=== PATIENT | male | born 1965 | race Caucasian/White ===

== ENCOUNTER 2017-05-19 13:06 | Emergency (ER) | payer SELFPAY ==
[2017-05-19 13:14] VITALS: BMI 28.3
--- NOTE | 2017-05-19 13:23 | PDOC ---
History of Present Illness - General History Source: Patient Exam Limitations: No Limitations - History of Present Illness Initial Comments: 05/19/17 14:52 Patient is a 52 year old male with a significant past medical history of Who presents to the ED with complaints of headache that began 6 days ago. Patient reports headache began last saturday with no relief. Patient reports generalized body ache secondary to frontal headache. He states experiencing fever secondary to frontal headache. Patient reports headache and fever developed together. Patient states he took tylenol x1 this morning at 11am for the frontal headache. Denies rashes, trauma. Denies nausea, vomiting. Denies contact with sick individuals, out of state travel. Denies any other symptoms. Allergies: None Social history: No smoking. No alcohol. No illicit drugs, Surgical history PMD: None <Jan Redd - Last Filed: 05/19/17 14:59> <Estela Rubio - Last Filed: 05/19/17 16:06> - General Chief Complaint: Cold Symptoms Stated Complaint: BACK PAIN Time Seen by Provider: 05/19/17 13:21 Past History <Jan Redd - Last Filed: 05/19/17 14:59> - Past Medical History Anemia: No Asthma: No Cancer: No Cardiac Disorders: No CVA: No COPD: No CHF: No Dementia: No Diabetes: No GI Disorders: No Disorders: No HTN: No Hypercholesterolemia: No Liver Disease: No Seizures: No Thyroid Disease: No - Surgical History Cholecystectomy: Yes Neurologic Surgery: No - Suicide/Smoking/Psychosocial Hx Smoking History: Never smoked Have you smoked in the past 12 months: No Number of Cigarettes Smoked Daily: 0 Hx Alcohol Use: No Substance Use Type: None <Estela Rubio - Last Filed: 05/19/17 16:06> - Past Medical History Allergies/Adverse Reactions: Allergies Allergy/AdvReac Type Severity Reaction Status Date / Time No Known Allergies Allergy Verified 05/19/17 13:11 Home Medications: Ambulatory Orders Levofloxacin [Levaquin] 750 mg PO DAILY #7 tab 05/19/17 Review of Systems - Review of Systems Able to Perform ROS?: Yes Comments:: 05/19/17 14:52 GENERAL/CONSTITUTIONAL: +Fever. No chills. No weakness. HEAD, EYES, EARS, NOSE AND THROAT: No change in vision. No ear pain or discharge. No sore throat. GASTROINTESTINAL: No nausea, vomiting, diarrhea or constipation. GENITOURINARY: No dysuria, frequency, or change in urination. CARDIOVASCULAR: No chest pain or shortness of breath. RESPIRATORY: No cough, wheezing, or hemoptysis. MUSCULOSKELETAL: No joint or muscle swelling or pain. No neck or back pain. SKIN: No rash NEUROLOGIC: +Headache No vertigo, loss of consciousness, or change in strength/sensation. ENDOCRINE: No increased thirst. No abnormal weight change. HEMATOLOGIC/LYMPHATIC: No anemia, easy bleeding, or history of blood clots. ALLERGIC/IMMUNOLOGIC: No hives or skin allergy. All Other Systems: Reviewed and Negative <Jan Redd - Last Filed: 05/19/17 14:59> *Physical Exam - Vital Signs Last Vital Signs Temp Pulse Resp BP Pulse Ox 101.3 F H 108 H 18 158/90 96 05/19/17 13:11 05/19/17 13:11 05/19/17 13:11 05/19/17 13:11 05/19/17 13:11 - Physical Exam Comments: 05/19/17 14:59 GENERAL: +hot to touch. Influenza like illness, Awake, alert, and fully oriented, in no acute distress HEAD: No signs of trauma EYES: PERRLA, EOMI, sclera anicteric, conjunctiva clear ENT: +dry mucous membrane. Auricles normal inspection, hearing grossly normal, nares patent, oropharynx clear without exudates. NECK: Normal ROM, supple, no lymphadenopathy, JVD, or masses LUNGS: Breath sounds equal, clear to auscultation bilaterally. No wheezes, and no crackles HEART: +Tachycardic. Regular rhythm, normal S1 and S2, no murmurs, rubs or gallops ABDOMEN: Soft, nontender, normoactive bowel sounds. No guarding, no rebound. No masses EXTREMITIES: Normal range of motion, no edema. No clubbing or cyanosis. No cords, erythema, or tenderness NEUROLOGICAL: Cranial nerves II through XII grossly intact. Normal speech, normal gait SKIN: Warm, Dry, normal turgor, no rashes or lesions noted. <Jan Redd - Last Filed: 05/19/17 14:59> - Vital Signs Last Vital Signs Temp Pulse Resp BP Pulse Ox 101.3 F H 108 H 18 158/90 96 05/19/17 13:11 05/19/17 13:11 05/19/17 13:11 05/19/17 13:11 05/19/17 13:11 <Estela Rubio - Last Filed: 05/19/17 16:06> Heart Score/ECG Review - ECG Intrepretation Comment:: 05/19/17 14:34 sinus tach at 101, incomplete rbbb, t wave inversions III, mild r heart strain on ekg <Estela Rubio - Last Filed: 05/19/17 16:06> ED Treatment Course - LABORATORY CBC & Chemistry Diagram: 05/19/17 13:35 05/19/17 13:35 - ADDITIONAL ORDERS Additional order review: Laboratory Results 05/19/17 13:35 Sodium 136 Potassium 3.6 Chloride 104 Carbon Dioxide 28 Anion Gap 4 L BUN 11 D Creatinine 0.8 Creat Clearance w eGFR > 60 Random Glucose 138 H D Calcium 8.1 L Magnesium 2.0 Total Bilirubin 0.7 AST 44 H D ALT 41 D Alkaline Phosphatase 77 D Total Protein 7.4 Albumin 3.3 L 05/19/17 13:35 Influenza Types A,B Antigen ([facility]ILSON) - Final Nasopharyngeal Swab - Final 05/19/17 13:35 RBC 4.48 MCV 87.0 MCHC 34.7 RDW 13.5 MPV 7.7 Neutrophils % 78.7 D Lymphocytes % 13.5 D Monocytes % 7.3 Eosinophils % 0.0 D Basophils % 0.5 - Medications Given in the ED: ED Medications Discontinued Medications Generic Name Dose Route Start Last Admin Trade Name Patrice PRN Reason Stop Dose Admin Diphenhydramine HCl 12.5 mg 05/19/17 13:32 05/19/17 13:45 Benadryl Injection - IVPUSH 05/19/17 13:33 12.5 mg ONCE ONE Administration Ketorolac Tromethamine 30 mg 05/19/17 13:32 05/19/17 13:55 Toradol Injection - IVPUSH 05/19/17 13:33 30 mg ONCE ONE Administration Metoclopramide HCl 10 mg 05/19/17 13:32 05/19/17 13:50 Reglan Injection - IVPUSH 05/19/17 13:33 10 mg ONCE ONE Administration Sodium Chloride 1,000 ml 05/19/17 13:32 05/19/17 14:03 Normal Saline - IV 05/19/17 13:33 1,000 ml ONCE ONE Administration <Jan Redd - Last Filed: 05/19/17 14:59> - LABORATORY CBC & Chemistry Diagram: 05/19/17 13:35 05/19/17 13:35 <Estela Rubio - Last Filed: 05/19/17 16:06> Medical Decision Making - Medical Decision Making 05/19/17 14:34 a/p: 52yo male with fevers since saturday and hayes, body aches -concern for flu vs flu like syndrome -no neck pain -neck supple -no meningeal signs -neuro intact -will check labs, cxr, ua -fever control (took paracetamol at 11am) ivf hydration, nausea/headache control -reassess 05/19/17 16:02 pt feeling much better. PNA on xray. Does not smoke. Will give dose of abx in the ED. Stable for d/c to home. Discussed lab and imaging results. Pt understands all reasons to return to the ED and need for follow up with the clinic. <Estela Rubio - Last Filed: 05/19/17 16:06> *DC/Admit/Observation/Transfer - Attestations Scribe Attestion: 05/19/17 14:53 Documentation prepared by Jan Redd, acting as medical staff services manager for Estela Rubio DO. <Jan Redd - Last Filed: 05/19/17 14:59> - Discharge Dispostion Admit: No - Attestations Physician Attestion: 05/19/17 16:06 I, Dr. Estela Rubio, DO, attest that this document has been prepared under my direction and personally reviewed by me in its entirety. I further attest, that it accurately reflects all work, treatment, procedures and medical decision -making performed by me. <Estela Rubio - Last Filed: 05/19/17 16:06> Diagnosis at time of Disposition: Pneumonia - Discharge Dispostion Disposition: HOME Condition at time of disposition: Stable - Prescriptions Prescriptions: Levofloxacin [Levaquin] 750 mg PO DAILY #7 tab - Referrals Referrals: Broderick Crystal MD [Staff Physician] - - Patient Instructions Printed Discharge Instructions: DI for Pneumonia -- Adult Additional Instructions: Please take all meds as prescribed. Please follow up with your PMD. Please return to the ED with any further concerns.
[2017-05-19] MEDS ORDERED: KETOROLAC TROMETHAMINE 30 MG/1 ML VIAL IVPUSH ONE (13:32)
[2017-05-19] MEDS ORDERED: METOCLOPRAMIDE HCL INJECTION 10 MG/2 ML VIAL IVPUSH ONE (13:32)
[2017-05-19] MEDS ORDERED: SODIUM CHLORIDE 0.9% 1000 ML INFUS.BAG IV ONE (13:32)
[2017-05-19 13:51] LABS: BASOPHIL 0.5 % (0-2.0); MCH 30.2 pg (25.7-33.7); MCHC 34.7 g/dl (32.0-35.9); MEAN PLT VOLUME 7.7 fl (7.5-11.1); NEUTROPHILS 78.7 % (42.8-82.8); PLATELET COUNT 144 K/MM3 (134-434); RDW 13.5 % (11.9-15.9); WHITE BLOOD COUNT 6.5 K/mm3 (4.0-10.0)
[2017-05-19] MEDS ORDERED: KETOROLAC TROMETHAMINE 30 MG/1 ML VIAL ONE ×2 (13:53→13:54)
[2017-05-19] MEDS ORDERED: METOCLOPRAMIDE HCL INJECTION 10 MG/2 ML VIAL ONE (13:53)
[2017-05-19 14:22] LABS: ALBUMIN 3.3 g/dl (3.4-5.0); ANION GAP 4 (8-16); BILIRUBIN,TOTAL 0.7 mg/dL (0.2-1.0); CALCIUM 8.1 mg/dL (8.5-10.1); CO2 28 mmol/L (21-32); CREATININE 0.8 mg/dL (0.7-1.3); GLUCOSE,RANDOM 138 mg/dL (74-106); SGPT/ALT 41 U/L (12-78); TOT PROT 7.4 g/dl (6.4-8.2)
[2017-05-19 14:23] LABS: ALK PHOS 77 U/L (45-117)
[2017-05-19 14:34] LABS: SGOT/AST 44 U/L (15-37)
[2017-05-19] MEDS ORDERED: LEVOFLOXACIN 750 MG IVPB 150 ML IVPB ONE ×2 (15:36→16:07)
[2017-05-19 16:24] VITALS: TEMP 100.1
[2017-05-19 17:28] VITALS: BP 116/76; PULSE 93
--- NOTE | 2017-05-19 20:28 | EKG ---
Test Reason : Blood Pressure : / mmHG Vent. Rate : 101 BPM Atrial Rate : 101 BPM P-R Int : 160 ms QRS Dur : 096 ms QT Int : 338 ms P-R-T Axes : 024 -25 012 degrees QTc Int : 438 ms SINUS TACHYCARDIA POSSIBLE LEFT ATRIAL ENLARGEMENT INCOMPLETE RIGHT BUNDLE BRANCH BLOCK BORDERLINE ECG WHEN COMPARED WITH ECG OF 14-FEB-2014 13:53, Confirmed by CHERIE CONNOR MD ([id number]) on 05/19/2017 8:28:47 PM Referred By: Confirmed By:CHERIE CONNOR MD
== END 2017-05-19 17:10 | disposition home or self-care (01) ==
LOC: JER 13:06
PROC: 3E03329 Introduction of Other Anti-infective into Peripheral Vein, Percutaneous Approach (ICD-10-PCS; principal; 2017-05-19)
PROC: 3E033GC Introduction of Other Therapeutic Substance into Peripheral Vein, Percutaneous Approach (ICD-10-PCS; 2017-05-19)
PROC: 3E0333Z Introduction of Anti-inflammatory into Peripheral Vein, Percutaneous Approach (ICD-10-PCS; 2017-05-19)
PROC: 3E033GC Introduction of Other Therapeutic Substance into Peripheral Vein, Percutaneous Approach (ICD-10-PCS; 2017-05-19)
DX: J18.9 Pneumonia, unspecified organism (principal)
CPT/HCPCS: 36415; 71020-TC; 80053; 83735; 85025; 87804; 93005; 93010; 99282-25